=== PATIENT | male | born 1975 | race Caucasian/White ===

== ENCOUNTER 2019-01-03 21:15 | Emergency (ER) | payer OTHER ==
[~2019-01-03] VITALS: Ht 172.7 cm; Wt 61.2 kg
[2019-01-03 21:18] VITALS: Ht 172.7 cm; Wt 61.2 kg
[2019-01-03 21:41] LABS: BASOPHIL % 0.4 % (0-2); PLATELET COUNT 164 x10^3mcL (130-400)
[2019-01-03 21:55] LABS: RED CELL DISTRIBUTION WIDTH 16.2 % (11.5-14.5)
[2019-01-03 21:58] LABS: CALCIUM 8.6 mg/dL (8.5-10.1); CARBON DIOXIDE 29.8 mmol/L (21-32); CHLORIDE SERUM 102 mmol/L (98-107); CREATININE SERUM 1.1 mg/dL (0.7-1.3); GFR1 > 60 mL/min; GLUCOSE SERUM 209 mg/dL (74-106); POTASSIUM SERUM 4.3 mmol/L (3.5-5.1); SODIUM SERUM 138 mmol/L (136-145)
[2019-01-03 22:03] LABS: ALBUMIN 3.5 g/dL (3.4-5.0); ALKALINE PHOSPHATASE 92 U/L (46-116); ALT/SGPT 37 U/L (16-63); AST/SGOT 22 U/L (15-37); BILIRUBIN TOTAL 0.4 mg/dL (0.20-1.00); TOTAL PROTEIN, SERUM 7.2 g/dL (6.4-8.2)
[2019-01-03 23:35] VITALS: BP 129/81
== END 2019-01-03 23:35 | disposition home or self-care (01) ==
LOC: ED 21:15
DX: M54.12 Radiculopathy, cervical region (principal); I10 Essential (primary) hypertension; E78.00 Pure hypercholesterolemia, unspecified
CPT/HCPCS: 36415